=== PATIENT | male | born 1995 | race American Indian/Alaskan Native ===

== ENCOUNTER 2021-08-07 12:16 | Emergency (ER) | payer SELFPAY ==
[2021-08-07] MEDS ORDERED: ONDANSETRON 4 MG ODT TAB PO ONE (15:13)
[2021-08-07] MEDS ORDERED: DICYCLOMINE 20 MG TAB PO ONE (15:13)
--- NOTE | 2021-08-07 16:17 | Emergency Department Report ---
ED N/V/D HPI - General Chief complaint: Nausea/Vomiting/Diarrhea Stated complaint: FOOD POISON Time Seen by Provider: 08/07/21 15:01 Source: patient Mode of arrival: Ambulatory Limitations: No Limitations - History of Present Illness Initial comments: 25-year-old black male with no past medical history presents to the emergency department for evaluation of 2-day history of nausea, vomiting, diarrhea, and intermittent abdominal pain and cramping. He states that his symptoms started after trying a new wean place on Thursday. He denies fever, dysuria, chills, and penile discharge. He states that his girlfriend who ate the wings also had similar symptoms but milder. MD complaint: nausea, vomiting, diarrhea, abdominal pain -: Gradual, days(s) (To) Description of Vomiting: watery Description of Diarrhea: water Associated Abdominal Pain: Yes Location: diffuse Radiation: none Severity: moderate Pain Scale: 7 Quality: cramping Consistency: intermittent Context: possible food poisoning Associated Symptoms: nausea/vomiting. denies: myalgias, chest pain, cough, diaphoresis, fever/chills, headaches, loss of appetite, malaise, rash, dysuria, shortness of breath, syncope, weakness - Related Data Previous Rx's Medication Instructions Recorded Last Taken Type Dicyclomine [Bentyl] 20 mg PO QID PRN #21 tablet 08/07/21 Unknown Rx Ondansetron [Zofran Odt] 4 mg PO Q8HR PRN #12 tab.rapdis 08/07/21 Unknown Rx Allergies Allergy/AdvReac Type Severity Reaction Status Date / Time No Known Allergies Allergy Verified 08/07/21 12:24 ED Review of Systems ROS: Stated complaint: FOOD POISON Other details as noted in HPI Comment: All other systems reviewed and negative Constitutional: denies: chills, diaphoresis, fever, malaise, weakness Eyes: denies: eye pain, eye discharge ENT: denies: ear pain, dental pain Respiratory: denies: cough, shortness of breath, SOB with exertion, SOB at rest Cardiovascular: denies: chest pain, palpitations, dyspnea on exertion Endocrine: no symptoms reported Gastrointestinal: abdominal pain, nausea, vomiting, diarrhea. denies: hematemesis, melena, hematochezia Genitourinary: denies: urgency, dysuria, frequency, hematuria, discharge, testicular pain Musculoskeletal: denies: back pain Skin: denies: rash, lesions Neurological: denies: headache, weakness, numbness, paresthesias, abnormal gait, vertigo Psychiatric: denies: anxiety, depression Hematological/Lymphatic: denies: easy bleeding, easy bruising ED Past Medical Hx - Medications Home Medications: Home Medications Medication Instructions Recorded Confirmed Last Taken Type Dicyclomine [Bentyl] 20 mg PO QID PRN #21 tablet 08/07/21 Unknown Rx Ondansetron [Zofran Odt] 4 mg PO Q8HR PRN #12 tab.rapdis 08/07/21 Unknown Rx ED Physical Exam - General Limitations: No Limitations General appearance: alert, in no apparent distress - Head Head exam: Present: atraumatic, normocephalic - Eye Eye exam: Present: normal appearance. Absent: conjunctival injection - Neck Neck exam: Present: normal inspection. Absent: lymphadenopathy - Respiratory Respiratory exam: Present: normal lung sounds bilaterally. Absent: respiratory distress, wheezes, rales, rhonchi, stridor, chest wall tenderness - Cardiovascular Cardiovascular Exam: Present: regular rate, normal heart sounds - GI/Abdominal GI/Abdominal exam: Present: soft, normal bowel sounds. Absent: distended, tenderness, guarding, rebound, rigid - Extremities Exam Extremities exam: Present: normal inspection - Back Exam Back exam: Present: normal inspection. Absent: CVA tenderness (R), CVA tenderness (L) - Neurological Exam Neurological exam: Present: alert, oriented X3 - Psychiatric Psychiatric exam: Present: normal affect, normal mood - Skin Skin exam: Present: warm, dry, intact, normal color ED Course Vital Signs 08/07/21 08/07/21 12:24 16:53 Temperature 98.2 F 98.4 F Pulse Rate 82 88 Respiratory 16 16 Rate Blood Pressure 130/85 Blood Pressure 122/88 [Right] O2 Sat by Pulse 97 99 Oximetry ED Medical Decision Making - Medical Decision Making 25-year-old black male with no past medical history presents to the emergency department for evaluation of 2-day history of nausea, vomiting, diarrhea, and intermittent abdominal pain and cramping. He states that his symptoms started after trying a new wean place on Thursday. He denies fever, dysuria, chills, and penile discharge. He states that his girlfriend who ate the wings also had similar symptoms but milder. Patient states that symptoms are mostly resolved. No tenderness noted on abdominal exam. History, exam, and symptoms consistent with probable gastroenteritis secondary to questionable food intake. Patient will be treated with Zofran and Bentyl as needed for symptoms. He was advised to drink plenty of noncaffeinated fluids, take medications as prescribed, and follow-up with primary care provider if symptoms worsen. He verbalized understanding of and agreement with plan of care. Critical care attestation.: If time is entered above; I have spent that time in minutes in the direct care of this critically ill patient, excluding procedure time. ED Disposition Clinical Impression: Gastroenteritis Disposition: 01 HOME / SELF CARE / HOMELESS Is pt being admited?: No Does the pt Need Aspirin: No Condition: Stable Instructions: Viral Gastroenteritis, Adult, [id number], Food Choices to Help Relieve Diarrhea, Adult Additional Instructions: Take medications as prescribed. Follow-up with primary care provider if no improvement or worsening symptoms. Prescriptions: Dicyclomine [Bentyl] 20 mg PO QID PRN #21 tablet PRN Reason: Pain , Severe (7-10) Ondansetron [Zofran Odt] 4 mg PO Q8HR PRN #12 tab.rapdis PRN Reason: Nausea And Vomiting Referrals: SHUN PABLO MD [Primary Care Provider] - 3-5 Days Forms: Work/School Release Form(ED) Time of Disposition: 16:17
[2021-08-07 16:54] VITALS: BP 122/88
== END 2021-08-07 16:55 | disposition home or self-care (01) ==
LOC: ED 12:16
DX: K52.9 Noninfective gastroenteritis and colitis, unspecified (principal)
CPT/HCPCS: 99282; J3490; Q0162

== ENCOUNTER 2021-12-02 08:49 | Emergency (ER) | payer SELFPAY ==
[2021-12-02 09:23] VITALS: BP 118/60
--- NOTE | 2021-12-02 11:58 | Emergency Department Report ---
Chief Complaint: Urogenital-Male Stated Complaint: PAIN IN GROIN AREA Time Seen by Provider: 12/02/21 11:50 - HPI History of Present Illness: 2 D HX DYSURIA CO STI NO TESTICULAR PAIN NO ABD OR BACK PAIN NO FEVER NO LESIONS SEX WITH WOMEN ONLY - ROS Review of Systems: DYSURIA - Exam Vital Signs: Vital Signs 12/02/21 09:20 Temperature 98.8 F Pulse Rate 66 Respiratory 18 Rate Blood Pressure 118/60 O2 Sat by Pulse 96 Oximetry Physical Exam: A/O S1S2 LUNGS CTA ABD SNT NO CVA TENDERNESS MSE screening note: Focused history and physical exam performed. Due to findings the following was ordered: MSE TO [facility] WITH REFERRAL Patient discussed with doctor:: KIMI SARGENT ED Disposition for MSE Clinical Impression: Dysuria Disposition: 07 LEFT AWOL/ELOPED Is pt being admited?: No Does the pt Need Aspirin: No Condition: Stable Instructions: Dysuria Additional Instructions: [facility] DEPT Referrals: SHUN PABLO MD [Staff Physician] - 3-5 Days Forms: Work/School Release Form(ED) Time of Disposition: 11:56
== END 2021-12-02 12:00 | disposition left against medical advice (07) ==
LOC: ED 08:49
DX: R30.0 Dysuria (principal)
CPT/HCPCS: 99281